=== PATIENT | female | born 2000 | race Caucasian/White ===

== ENCOUNTER 2024-04-01 20:12 | Emergency (ER) | payer OTHER, SELFPAY ==
--- NOTE | ~2024-04-01 | CT_ITS ---
EXAMINATION: CT abdomen pelvis w con DATE: 04/01/2024 22:08 INDICATION: Abdominal pain and vomiting TECHNIQUE: Computed tomography (CT) of the abdomen and pelvis was performed with 100 mL Omnipaque-350 intravenous contrast. Automated exposure control and iterative reconstruction technique were employe d. The dose-length product was 288.94 mGy-cm. COMPARISON: None FINDINGS: Lung bases are clear. Heart size is normal. No pericardial or pleural effusion., Hepatic steatosis al anushka the ligamentum teres. Gallbladder, spleen, pancreas, bilateral adrenal glands and kidneys are nor mal. Fluid in the proximal colon with stool in the more distal colon. There are some scattered fluid in the nondilated nonobstructed small bowel as well as in the proximal colon. Normal appendix. Bladde r, anteverted uterus and bilateral adnexa are unremarkable. No free intraperitoneal gas or fluid. No pathologically enlarged abdominal or pelvic lymphadenopathy. Bones are unremarkable. IMPRESSION: 1. Fluid in the small bowel and proximal colon consistent with nonspecific diarrhea. No other acute i ntra-abdominal/pelvic process. Reviewed, dictated and finalized at location A. IMPRESSION: 1. Fluid in the small bowel and proximal colon consistent with nonspecific diar prudencio. No other acute intra-abdominal/pelvic process.
[2024-04-01 20:26] VITALS: BP 127/87; PULSE 113; RESP 19; TEMP 37; O2SAT 100
[2024-04-01 20:36] VITALS: BP 118/73; PULSE 122; RESP 18; O2SAT 100
[2024-04-01] MEDS: SODIUM CHLORIDE 0.9% IV 1,000 ML 999 ML IV CONT ×2 (21:03→21:41)
[2024-04-01] MEDS: ONDANSETRON INJ 4 MG/2 ML VIAL IV PUSH (21:03)
[2024-04-01] MEDS: FAMOTIDINE 20 MG/2 ML VIAL IV PUSH (21:03)
[2024-04-01 21:13] LABS: Basophils Percent Auto 0.5 % (0.2-1.2); Eosinophils Percent Auto 0.2 % (0-4.4); Hematocrit 49.4 % (37.0-47.0); Hemoglobin 17.2 g/dL (12.0-15.0); Immature Granulocyte Absolute 0.02 K/mm3 (0.00-0.031); Immature Granulocyte Percent A 0.3 % (0-0.5); Lymphocytes Absolute Auto 0.83 K/mm3 (0.9-3.2); Lymphocytes Percent Auto 12.5 % (18.3-44.2); Mean Corpuscular HGB Conc 34.8 g/dl (32-36); Mean Corpuscular Hemoglobin 31.5 pg (26-34); Mean Corpuscular Volume 90.5 fl (80-100); Mean Platelet Volume 8.6 fl (7.4-10.4); Monocytes Absolute Auto 0.4 K/mm3 (0.1-0.6); Monocytes Percent Auto 6.6 % (2.6-8.5); Neutrophils Absolute Auto 5.3 K/mm3 (1.3-6.7); Neutrophils Percent Auto 79.9 % (45.5-73.1); Platelet Count Result 394 k/mm3 (150-375); Red Blood Count 5.46 M/mm3 (4.2-5.4); Red Cell Distribution Width 12.3 % (11.5-14.5); White Blood Count 6.6 K/mm3 (4.5-10.0)
[2024-04-01] MEDS: LORazepam INJ (*CRX) 2 MG/ML VIAL 0.5 MG IV PUSH (21:13)
[2024-04-01 21:26] LABS: Alanine Aminotransferase 15 U/L (6-35); Albumin Level 4.9 g/dL (3.5-5.1); Alkaline Phosphatase 55 U/L (38-126); Anion Gap 14 mmol/L (4-12); Aspartate Amino Transferase 24 U/L (14-36); Bilirubin,Total 1.2 mg/dL (0.2-1.3); Blood Urea Nitrogen 15 mg/dL (7-17); Calcium 9.7 mg/dL (8.4-10.2); Carbon Dioxide 20 mmol/L (22-30); Chloride 102 mmol/L (98-107); Estimated CRCL calculation 90 ml/min; Estimated Glomerular Filt Rate > 60; Glucose 112 mg/dL (65-110); Lipase 79 U/L (23-300); Potassium 3.8 mmol/L (3.4-5.0); Sodium 136 mmol/L (137-145)
[2024-04-01 21:50] LABS: Appearance Urine Clear (Clear); Bacteria Urine 1+ /hpf; Bilirubin Urine Negative (Negative); Blood Urine Negative (Negative); Color Urine Yellow (Yellow); Glucose Urine UA Negative (Negative); Ketones Urine 2+ mg/dL (Negative); Leukocyte Esterase Ur 2+ LEU/UL (Negative); Nitrate Urine Negative (Negative); Non Pathogenic Casts 0-2; Protein Urine Trace mg/dL (Negative); RBC Urine 0-2 /hpf (0-2); Specific Grav Ur 1.026 (1.001-1.035); Squamous Epithelial Cell Urine Moderate /hpf (Few); Urobilinogen Urine 0.2 mg/dL (<2.0); pH Urine 5.5 (5.0-9.0)
[2024-04-01 21:51] LABS: Add Urine Microscopic? YES
--- NOTE | 2024-04-01 22:36 | ED.ABDPAIN ---
HPI - Abdominal Pain General Chief Complaint: Abdominal Pain Stated Complaint: abdominal pain x1 month Time Seen by Provider: 04/01/24 20:38 Source: patient Mode of arrival: ambulatory Limitations: no limitations History of Present Illness HPI narrative: This is a 24 year old female that presents to the ER for abdominal pain and vomiting. Ongoing since earlier this morning. Reports intermittent problems with this over the last month. The pain is in the left lower abdomen. Denies fever, dysuria or hematuria. Related Data Allergies Allergy/AdvReac Type Severity Reaction Status Date / Time No Known Allergies Allergy Verified 04/01/24 20:37 Review of Systems Review of Systems: CONSTITUTIONAL: Denies fever GASTROINTESTINAL: Reports abdominal pain, nausea, vomiting, and diarrhea. GENITOURINARY: Denies dysuria All systems reviewed & are unremarkable except as noted in HPI and below PMFSH Past Medical History Medical History (Updated 04/01/24 @ 22:47 by Nerissa Reynoso PA-C) No active medical problems Surgical History Surgical History (Updated 12/25/23 @ 17:52 by Danette Humphries CMA) History of ankle surgery Family History Family History (Updated 12/25/23 @ 17:53 by Danette Humphries CMA) Grandparent Diabetes mellitus Other No problems noted. Mother Skin cancer Social History Social History (Updated 12/25/23 @ 17:53 by Danette Humphries CMA) Smoking status: Never smoker Alcohol intake: current Alcohol use details: rare Substance use: never Substance use type: does not use Living arrangements: with family Occupation/Education: student Gender identity (if verbalized by the patient): Female Exam Narrative: GENERAL: Well-appearing, well-nourished, and in no acute distress. HEAD: Normocephalic, atraumatic. EYES: EOMI. CHEST: Clear to auscultation. No respiratory distress. No wheezes rales or rhonchi HEART: Regular rate and rhythm. No murmur heard. Normal peripheral pulses. ABDOMEN: Soft, nondistended, normal active bowel sounds. Mild tenderness to palpation in the left lower abdomen, without guarding EXTREMITIES: Normal range of motion. No edema. SKIN: Warm, dry, no rash. NEURO: No focal deficits. Alert and oriented x3. PSYCH: Normal mood and affect Course Course Emergency Course: Patient and family updated on workup and agree with plan of care Vital Signs Vital signs: Vital Signs Temperature 98.6 F 04/01/24 20:26 Pulse Rate 113 H 04/01/24 20:26 Respiratory Rate 19 04/01/24 20:26 Blood Pressure 127/87 04/01/24 20:26 Pulse Oximetry 100 04/01/24 20:26 Oxygen Delivery Room Air 04/01/24 20:26 Temperature 98.6 F 04/01/24 20:26 Pulse Rate 122 H 04/01/24 20:36 Respiratory Rate 18 04/01/24 20:36 Blood Pressure 118/73 04/01/24 20:36 Pulse Oximetry 100 04/01/24 20:36 Oxygen Delivery Room Air 04/01/24 20:26 MDM - Abdominal Pain MDM Narrative Medical decision making narrative: Patient presents to the ER for abdominal pain, nausea and vomiting. Reports intermittent abdominal pain ongoing over the last month with worsening today. She is afebrile and nontoxic appearing. Tachycardic upon arrival. This improved with IV fluids. CBC without leukocytosis. Shows hemoconcentration. Metabolic panel also with some evidence of dehydration. UA with some evidence of infection. Patient given Rocephin in the ED. CT abdomen/pelvis shows nonspecific diarrhea. Patient and family updated on workup and agree with plan of care. She is to follow up with her PCP. She was given warnings to return to the ER Differential Diagnosis Differential diagnosis: Likely calculus of kidney, constipation, diverticulitis, gastroenteritis and other (UTI) Lab Data Attestation: I reviewed the patient's lab results. 04/01/24 21:09 04/01/24 21:09 Labs: Lab Results 04/01/24 04/01/24 Range/Units 21:09 21:41 WBC 6.6 (4.5-10.0) K/mm3
[2024-04-01] MEDS: KETOROLAC 15 MG/ML VIAL (*BKC) IV PUSH (22:45)
== END 2024-04-02 00:20 | disposition home or self-care (01) ==
PROVIDERS: Emergency Provider Physician Assistant
DX: N39.0 Urinary tract infection, site not specified (principal)
CPT/HCPCS: 36415; 74177; 80053; 81001; 81025; 83690; 85025; 87086; 96365; 96375; 99284; J0696; J1885; J2060; J2405; J7030; Q9967